=== PATIENT | female | born 1985 | race Two or more races ===

== ENCOUNTER 2021-05-12 06:08 | Inpatient (IN) | payer SELFPAY ==
[~2021-05-12] VITALS: Ht 152 cm; Wt 78.5 kg
[2021-05-12] MEDS: LACTATED RINGERS 1,000 ML IV SCH ×2 (08:00→17:20)
[2021-05-12] MEDS ORDERED: DEXT 5%/LR + PITOCIN 20UNITS/L 1,000 ML IV SCH ×2 (08:00→10:15)
[2021-05-12] MEDS ORDERED: MISOPROSTOL 100MCG TABLET VG SCH (08:00)
[2021-05-12] MEDS ORDERED: METHYLERGONOVINE MALEATE 0.2 MG/ML IM PRN (08:00)
[2021-05-12] MEDS ORDERED: CARBOPROST TROMETHAMINE 250 MCG/ML AMPUL IM PRN (08:00)
[2021-05-12] MEDS ORDERED: PHENYLEPHRINE HCL 10 MG/ML 1ML (IV VIAL) IV ONE (08:17)
[2021-05-12] MEDS ORDERED: MORPHINE SULFATE/PF 1MG/ML 10ML AMP ONE (08:17)
[2021-05-12 08:22] LABS: BASOPHILS % 0.2 % (0.0-2.0); EOSINOPHILS % 1.4 % (0.0-5.0); HEMATOCRIT. 35.1 % (36.0-48.0); HEMOGLOBIN. 12.2 g/dL (12.0-16.0); LYMPHOCYTES % 26.6 % (20.0-50.0); MEAN CORPUSCULAR HEMOGLOBIN 31.3 pg (28.0-32.0); MEAN CORPUSCULAR VOLUME 90.2 fL (81.0-99.0); MEAN PLATELET VOLUME 12.3 fl (7.4-10.4); MONOCYTES % 6.2 % (2.0-8.0); NEUTROPHILS % 65.6 % (40.0-76.0); PLATELET 125 x1000/uL (130-400); RED CELL DISTRIBUTION WIDTH 12.9 % (11.6-14.6)
[2021-05-12] MEDS ORDERED: OXYTOCIN 10 UNITS/ML 1ML ONE (08:23)
[2021-05-12] MEDS ORDERED: CEFAZOLIN SODIUM 1000MG/VIAL ONE (08:23)
[2021-05-12] MEDS ORDERED: ONDANSETRON HCL 4MG/2ML INJ ONE (08:23)
[2021-05-12] MEDS ORDERED: SODIUM CHLORIDE 0.9% 10ML VIAL ONE (08:23)
[2021-05-12] MEDS ORDERED: KETOROLAC 60MG/2ML VIAL IM ONE (08:23)
[2021-05-12] MEDS ORDERED: EPHEDRINE SULFATE 50MG/ML VIAL ONE (08:23)
[2021-05-12] MEDS ORDERED: DEXAMETHASONE 4MG/ML 1ML VIAL ONE (08:23)
[2021-05-12 08:36] LABS: CLARITY URINE CLEAR (CLEAR); COLOR URINE YELLOW (YELLOW); KETONES URINE NEGATIVE (NEGATIVE); LEUKOCYTE ESTERASE URINE TRACE (NEGATIVE); NITRITE URINE NEGATIVE (NEGATIVE); OCCULT BLOOD URINE NEGATIVE (NEGATIVE); PROTEIN URINE NEGATIVE (NEGATIVE); SPECIFIC GRAVITY URINE 1.016 (1.005-1.030); UROBILINOGEN URINE 0.2 E.U./dL (0.2-1.0)
[2021-05-12 08:46] LABS: INR 0.9; PARTIAL THROMBOPLASTIN TIME 30.2 sec (23.4-31.0); PROTHROMBIN TIME 9.9 sec (9.6-11.0)
[2021-05-12 09:23] LABS: *AMPHETAMINES SCREEN URINE NEGATIVE (NEGATIVE); *BARBITURATES SCREEN URINE NEGATIVE (NEGATIVE); *BENZODIAZEPINES SCREEN URINE NEGATIVE (NEGATIVE); *COCAINE SCREEN URINE NEGATIVE (NEGATIVE); METHADONE URINE SCREEN NEGATIVE (NEGATIVE)
[2021-05-12 09:24] LABS: CANNABINOID URINE SCREEN NEGATIVE (NEGATIVE); OPIATES URINE SCREEN NEGATIVE (NEGATIVE); PHENCYCLIDINE URINE SCREEN NEGATIVE (NEGATIVE)
[2021-05-12] MEDS ORDERED: NALOXONE HCL 0.4 MG/ML 1ML VIAL IV PRN (09:30)
[2021-05-12] MEDS ORDERED: HYDROMORPHONE HCL/PF 2MG/ML CPJ IM PRN (10:15)
[2021-05-12] MEDS ORDERED: RHO(D) IMMUNE GLOBULIN 300 MCG/SYR IM PRN (10:15)
[2021-05-12] MEDS ORDERED: BISACODYL 10MG SUPP PR PRN (10:15)
[2021-05-12] MEDS ORDERED: IBUPROFEN 400MG TABLET PO PRN (10:15)
[2021-05-12] MEDS ORDERED: OXYCODONE HCL/ACETAMINOPHEN 5/325MG TABLET PO PRN (10:15)
[2021-05-12] MEDS ORDERED: DIPHENHYDRAMINE 25MG CAPSULE PO PRN (10:15)
[2021-05-12] MEDS ORDERED: KETOROLAC 30MG/ML VIAL IV PRN (10:30)
[2021-05-12 12:15] VITALS: BP 112/60
[2021-05-12 14:00] VITALS: BP 103/50
[2021-05-12 15:20] LABS: HEPATITIS B SURFACE ANTIGEN NEGATIVE
[2021-05-12 18:00] VITALS: BP 100/50
[2021-05-12 20:00] VITALS: BP 112/36
[2021-05-13] VITALS: BP 99/52
[2021-05-13 04:00] VITALS: BP 101/54
[2021-05-13 06:54] LABS: BASOPHILS % 0.4 % (0.0-2.0); EOSINOPHILS % 0.6 % (0.0-5.0); HEMATOCRIT. 35.5 % (36.0-48.0); HEMOGLOBIN. 12.3 g/dL (12.0-16.0); LYMPHOCYTES % 20.5 % (20.0-50.0); MEAN CORPUSCULAR HEMOGLOBIN 31.4 pg (28.0-32.0); MEAN CORPUSCULAR VOLUME 90.7 fL (81.0-99.0); MEAN PLATELET VOLUME 10.2 fl (7.4-10.4); MONOCYTES % 7.5 % (2.0-8.0); PLATELET 110 x1000/uL (130-400); RED BLOOD CELL COUNT 3.92 mill/uL (4.2-5.4); RED CELL DISTRIBUTION WIDTH 12.8 % (11.6-14.6)
[2021-05-13 07:30] VITALS: BP 102/64
[2021-05-13] MEDS: PRENATAL VIT/FE FUMARATE/FA TABLET PO SCH (08:29)
[2021-05-13] MEDS: FERROUS SULFATE 325MG TABLET PO SCH ×3 (08:29→17:54)
[2021-05-13 16:03] VITALS: BP 100/55
[2021-05-13 19:45] VITALS: BP 103/52
[2021-05-13] MEDS: IBUPROFEN 800MG TABLET PO PRN (20:57)
[2021-05-14 00:01] VITALS: BP 107/60
[2021-05-14 03:30] VITALS: BP 106/56
[2021-05-14 08:40] VITALS: BP 106/71
[2021-05-14] MEDS: PRENATAL VIT/FE FUMARATE/FA TABLET PO SCH (09:02)
[2021-05-14] MEDS: FERROUS SULFATE 325MG TABLET PO SCH ×2 (09:02→16:47)
[2021-05-14 16:40] VITALS: BP 98/51
[2021-05-14] MEDS: IBUPROFEN 800MG TABLET PO PRN (16:47)
[2021-05-14 19:50] VITALS: BP 117/63
[2021-05-15 00:01] VITALS: BP 113/54
[2021-05-15 04:00] VITALS: BP 121/71
[2021-05-15 07:30] VITALS: BP 108/54
[2021-05-15] MEDS: PRENATAL VIT/FE FUMARATE/FA TABLET PO SCH (09:00)
[2021-05-15] MEDS: FERROUS SULFATE 325MG TABLET PO SCH ×2 (09:00→15:22)
[2021-05-15] MEDS: IBUPROFEN 800MG TABLET PO PRN (15:22)
== END 2021-05-15 15:30 | disposition home or self-care (01) | DRG 540 ==
LOC: OBSVTOIN 06:08 → 8 EST LDRP 06:08 → 8EST 13:33
PROVIDERS: ADMIT Obstetrics & Gynecology; ATTEND Obstetrics & Gynecology
PROC: 10D00Z1 Extraction of Products of Conception, Low, Open Approach (ICD-10-PCS; principal; 2021-05-12)
DX: O34.211 Maternal care for low transverse scar from previous cesarean delivery (principal); Z20.822 Contact with and (suspected) exposure to COVID-19; Z37.0 Single live birth; Z3A.39 39 weeks gestation of pregnancy
CPT/HCPCS: 36415; 80305; 81003; 85025; 86592; 86703; 86762; 86850; 86900; 86920; 87340; 87426; 88307; J0690; J1100; J1885; J2274; J2370; J2405; J2590; J3490; J7120